=== PATIENT | female | born 2000 | race African-American/Black ===

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

== ENCOUNTER 2024-06-26 12:25 | Emergency (ER) | payer OTHER ==
[~2024-06-26] VITALS: Ht 165.1 cm; Wt 72.7 kg
[2024-06-26 12:37] VITALS: TEMP 98.6
[2024-06-26] MEDS ORDERED: IBUP-2070 PO (12:39)
[2024-06-26] MEDS ORDERED: TIRZ2.5P3 SQ (12:39)
[2024-06-26] MEDS ORDERED: ALBU18HF12 IH (12:39)
[2024-06-26] MEDS: SODIUM CHLORIDE 0.9% 1,000 ML IV ONE (12:48)
[2024-06-26] MEDS: ONDANSETRON HCL 4 MG/2 ML VIAL IVP ONE (12:49)
[2024-06-26 13:12] LABS: BASOPHILS % (AUTO) 0.4 % (0.0-2.0); HEMATOCRIT 43.8 % (36-46); HEMOGLOBIN 13.7 g/dL (12.0-16.0); LYMPHOCYTES # (AUTO) 0.9 K/uL (1.0-4.8); LYMPHOCYTES % (AUTO) 12.7 % (22.0-44.0); MEAN CORPUSCULAR HEMOGLOBIN 26.3 pg (26.0-34.0); MEAN CORPUSCULAR HGB CONC 31.3 G/dL (31.0-37.0); MEAN CORPUSCULAR VOLUME 84 fL (80-100); MONOCYTES # (AUTO) 0.4 K/uL (0.1-1.0); MONOCYTES % (AUTO) 5.6 % (2.0-9.0); NEUTROPHILS # (AUTO) 5.8 K/uL (1.8-7.7); NEUTROPHILS % (AUTO) 80.3 % (40.0-70.0); PLATELET COUNT (AUTO) 315 K/uL (150-450); RED BLOOD CELL COUNT(AUTO) 5.21 MIL/uL (4.00-5.20); RED CELL DISTRIBUTION WIDTH 20.8 % (11.5-14.5); WHITE BLOOD COUNT (AUTO) 7.2 K/uL (4.5-11.0)
[2024-06-26] MEDS: METOCLOPRAMIDE HCL 5 MG/ML 2 ML VIAL IVP ONE (13:17)
[2024-06-26] MEDS: PANTOPRAZOLE SODIUM 40 MG/VIAL IVP ONE (13:17)
[2024-06-26 13:24] LABS: ANION GAP 15 mmol/L (8-16); CALCIUM, TOTAL 8.5 mg/dL (8.8-10.5); CARBON DIOXIDE 20 mmol/L (22-29); CHLORIDE 103 mmol/L (98-107); CREATININE 0.68 mg/dL (0.60-1.30); GLOMERULAR FILTR. RATE CALC > 60 mL/min (>60); GLUCOSE,RANDOM 72 mg/dL (70-110); SODIUM SERUM 138 mmol/L (136-145); UREA NITROGEN, BLOOD 12 mg/dL (7-18)
[2024-06-26 13:28] LABS: ALANINE AMINOTRANSFERASE 12 U/L (12-78); ALKALINE PHOSPHATASE 92 U/L (46-116); ASPARTATE AMINOTRANSFERASE 23 U/L (15-37); BILIRUBIN,TOTAL 0.6 mg/dL (0.1-1.0); LIPASE 31 U/L (16-77); TOTAL PROTEIN, SERUM 7.9 g/dL (6.4-8.2)
[2024-06-26 14:11] LABS: APPEARANCE,URINE CLEAR (CLEAR); BILIRUBIN,URINE NEGATIVE (NEGATIVE); COLOR,URINE LIGHT YELLOW (YELLOW); GLUCOSE, URINE (UA) NEGATIVE (NEGATIVE); KETONES,URINE =>150 mg/dL (NEGATIVE); LEUKOCYTE ESTERASE ,URINE NEGATIVE (NEGATIVE); NITRATE,URINE NEGATIVE (NEGATIVE); OCCULT BLOOD,URINE NEGATIVE (NEGATIVE); PH,URINE 5.5 (5.0-8.0); PROTEIN,URINE 30-70 mg/dL (NEGATIVE); SPECIFIC GRAVITIY, URINE 1.028 (1.003-1.030); UROBILINOGEN,URINE <=1.0 mg/dL (<=1.0)
[2024-06-26] MEDS: MAG HYDROX/ALUMINUM HYD/SIMETH ES 30 ML SUSPENSION UDCUP PO ONE (15:30)
[2024-06-26] MEDS: DICYCLOMINE HCL 10 MG CAPSULE PO ONE (15:30)
[2024-06-26] MEDS ORDERED: METO5TAB95 PO (17:09)
[2024-06-26 17:32] VITALS: BP 112/69; PULSE 85; RESP 17; O2SAT 99
== END 2024-06-26 17:33 | disposition home or self-care (01) ==
LOC: EMS 12:35
DX: R11.2 Nausea with vomiting, unspecified (principal); R10.13 Epigastric pain
CPT/HCPCS: 99285; 96374; 96375; 96361; 80048; 80076; 81003; 83690; 84703; 85025; 36415; 74018; 93005; J2765; J2405; J2470; J7030

== ENCOUNTER 2024-10-09 18:03 | Emergency (ER) | payer OTHER ==
[~2024-10-09] VITALS: Ht 168.9 cm; Wt 72.7 kg
[~2024-10-09 18:03] MED LIST changes: -ALBU17AE27 IH; +ALBU18HF12 IH; +IBUP-2070 PO; -INHALER; +METO5TAB95 PO; +TIRZ2.5P3 SQ
[2024-10-09 18:17] LABS: COVID AG,FIA SOURCE NASAL SWAB
[2024-10-09 18:38] LABS: INFLUENZA TYPE A NEGATIVE FOR TYPE A (NEGATIVE); INFLUENZA TYPE B NEGATIVE FOR TYPE B (NEGATIVE); SARS-COV2 (COVID) ANTIGEN,FIA Negative (Negative)
[2024-10-09 18:54] LABS: RAPID GROUP A STREP POSITIVE (NEGATIVE)
[2024-10-09 20:08] VITALS: BP 102/65; PULSE 110; RESP 17; TEMP 99.3; O2SAT 97
[2024-10-09] MEDS: ONDANSETRON 4 MG TABLET PO ONE (20:24)
[2024-10-09] MEDS: ACETAMINOPHEN 500 MG TABLET PO ONE (20:25)
[2024-10-09] MEDS: PENICILLIN G BENZATHINE LA 1,200,000 UNITS/2 ML SYRINGE IM ONE (20:25)
[2024-10-09] MEDS: dexAMETHasone 4 MG TABLET PO ONE (20:25)
[2024-10-09] MEDS ORDERED: ONDA-104 PO (20:58)
== END 2024-10-09 21:12 | disposition home or self-care (01) ==
LOC: EMS 18:03
DX: J02.0 Streptococcal pharyngitis (principal); Z20.822 Contact with and (suspected) exposure to COVID-19; Z79.899 Other long term (current) drug therapy
CPT/HCPCS: 99284; 87426; 87430; 87804; 96372; J0561; J8540; Q0162